=== PATIENT | female | born 1975 | race Hispanic/Latino ===

== ENCOUNTER 2017-03-06 01:48 | Observation (INO) | payer MEDICAID ==
[2017-03-06 01:48] VITALS: BMI 23.4
--- NOTE | 2017-03-06 02:15 | C.PDOC ---
History Of Present Illness Patient is a 41 year old female brought to the ER by EMS for acute ETOH intoxication. Patient admits to ETOH use today. Denies any physical complaints at this time. Chief Complaint (Nursing): Substance Abuse History Per: Patient, EMS History/Exam Limitations: no limitations Onset/Duration Of Symptoms: Hrs Current Symptoms Are (Timing): Still Present Suicide/Self Injury Attempted (Context): None Modifying Factor(s): Alcohol Associated Symptoms: denies: Depression, Suicidal Thoughts, Suicidal Plan Involuntary Hold By: None Recent travel outside of the [place]: No Past Medical History Reviewed: Historical Data, Nursing Documentation, Vital Signs Vital Signs: Last Vital Signs Temp 98 F 03/06/17 01:59 Pulse 69 03/06/17 04:04 Resp 17 03/06/17 04:04 BP 104/70 03/06/17 04:04 Pulse Ox 97 03/06/17 04:57 - Medical History PMH: Depression Surgical History: No Surg Hx - [facility] Procedures ALCOHOL DETOXIFICATION (07/14/13) DETOXIFICATION SERVICES FOR SUBSTANCE ABUSE TREATMENT (08/23/16) GROUP ENROLLER FOR SUBSTANCE ABUSE TREATMENT, PSYCHOEDUCATION (08/23/16) INJECT/INFUSE NEC (04/29/13) Family History: States: Unknown Family Hx - Social History Hx Tobacco Use: Yes Hx Alcohol Use: Yes Hx Substance Use: Yes (denies) - Immunization History Hx Tetanus Toxoid Vaccination: No Hx Influenza Vaccination: No Hx Pneumococcal Vaccination: No Review Of Systems Constitutional: Negative for: Fever, Chills Gastrointestinal: Negative for: Nausea, Vomiting, Diarrhea Neurological: Positive for: Other (ETOH intoxication) Physical Exam - Physical Exam Appears: Non-toxic, Other (ETOH on breath) Skin: Normal Color, Warm, Dry Head: Atraumatic, Normacephalic Eye(s): bilateral: Normal Inspection, EOMI Oral Mucosa: Moist Chest: Symmetrical, No Tenderness Cardiovascular: Rhythm Regular, No Murmur Respiratory: Normal Breath Sounds, No Rales, No Rhonchi, No Wheezing Gastrointestinal/Abdominal: Soft, No Tenderness Neurological/Psych: Oriented x3, Normal Speech, Normal Cognition ED Course And Treatment O2 Sat by Pulse Oximetry: 97 ED OBSERVATION Date of observation admission: 03/06/17 Time of observation admission: 02:20 - Observation admission statement Patient is being placed in observation because:: Acute ETOH intoxication - Goals of Observation Goals of observation are:: Sobriety Disposition Counseled Patient/Family Regarding: Diagnosis - Disposition Disposition: HOME/ ROUTINE Disposition Time: 05:25 Condition: STABLE - POA Present On Arrival: None - Clinical Impression Clinical Impression: Alcohol abuse - Scribe Statement The provider has reviewed the documentation as recorded by the Scribe Isaías Mckeon All medical record entries made by the Manibcarolyn were at my direction and personally dictated by me. I have reviewed the chart and agree that the record accurately reflects my personal performance of the history, physical exam, medical decision making, and the department course for this patient. I have also personally directed, reviewed, and agree with the discharge instructions and disposition.
[2017-03-06 06:12] VITALS: BP 121/72; PULSE 82; RESP 20; TEMP 97.6; O2SAT 99
== END 2017-03-06 05:45 | disposition home or self-care (01) ==
LOC: C.ER 01:48 → C.9OBSV 02:12
PROVIDERS: ADMIT Emergency Medicine; ATTEND Emergency Medicine
DX: F10.129 Alcohol abuse with intoxication, unspecified (principal); Z87.891 Personal history of nicotine dependence; Y90.9 Presence of alcohol in blood, level not specified
CPT/HCPCS: 99284; G0378